=== PATIENT | male | born 1975 | race Caucasian/White ===

== ENCOUNTER 2020-11-06 22:41 | Emergency (ER) | payer OTHER ==
[2020-11-06 22:47] VITALS: BP 127/91; PULSE 91; RESP 18; TEMP 98.1
--- NOTE | 2020-11-06 23:25 | ED ---
Alcohol HPI - General Chief Complaint: Alcohol Stated Complaint: ETOH Time Seen by Provider: 11/06/20 22:43 Source: police, EMS, RN notes reviewed, old records reviewed Mode of arrival: EMS Limitations: no limitations - History of Present Illness Initial Comments: This is a 44-year-old male presenting for severe alcohol intoxication relatively poor story otherwise. At this time patient will be observed for sober, patient was not doing any pain but sleeping outside of a restaurant. She denies complaints she is able to answer questions and he does arouse to verbal communication. Patient denies any complaints MD Complaint: alcohol intoxication Last Drink: just HEAD PUMPER -: minute(s) Previous Visits for Alcohol Intoxication?: No Recent Trauma: Yes Associated Symptoms: denies other symptoms Treatments Prior to Arrival: none Chronic Alcohol Use: Yes - Related Data Home Medications Medication Instructions Recorded Confirmed No Known Home Medications 11/17/13 11/17/13 Allergies Allergy/AdvReac Type Severity Reaction Status Date / Time No Known Allergies Allergy Verified 11/06/20 22:47 Review of Systems ROS Statement: Those systems with pertinent positive or pertinent negative responses have been documented in the HPI. ROS Other: All systems not noted in ROS Statement are negative. Past Medical History Past Medical History: No Reported History History of Any Multi-Drug Resistant Organisms: None Reported Past Surgical History: No Surgical Hx Reported Past Psychological History: No Psychological Hx Reported Past Alcohol Use History: Occasional Past Drug Use History: None Reported General Exam General appearance: alert, in no apparent distress, appears intoxicated Head exam: Present: atraumatic, normocephalic, normal inspection Eye exam: Present: normal appearance, PERRL, EOMI. Absent: scleral icterus, conjunctival injection, periorbital swelling ENT exam: Present: normal exam, mucous membranes moist Neck exam: Present: normal inspection. Absent: tenderness, meningismus, lymphadenopathy Respiratory exam: Present: normal lung sounds bilaterally. Absent: respiratory distress, wheezes, rales, rhonchi, stridor Cardiovascular Exam: Present: regular rate, normal rhythm, normal heart sounds. Absent: systolic murmur, diastolic murmur, rubs, gallop, clicks GI/Abdominal exam: Present: soft, normal bowel sounds. Absent: distended, tenderness, guarding, rebound, rigid Extremities exam: Present: normal inspection, full ROM, normal capillary refill. Absent: tenderness, pedal edema, joint swelling, calf tenderness Back exam: Present: normal inspection Neurological exam: Present: alert, oriented X3, CN II-XII intact Psychiatric exam: Present: normal affect, normal mood Skin exam: Present: warm, dry, intact, normal color. Absent: rash Course Vital Signs 11/06/20 11/06/20 22:42 22:47 Temperature 98.1 F Pulse Rate 91 91 Respiratory 18 18 Rate Blood Pressure 127/91 O2 Sat by Pulse 95 92 L Oximetry - Reevaluation(s) Reevaluation #1: 11/06/20 23:42 Medical record is reviewed Medical Decision Making - Medical Decision Making 44 male who did observe for alcohol intoxication, currently awake alert prefers discharge home able ambulate without difficulty Disposition Clinical Impression: Alcoholic intoxication Disposition: HOME SELF-CARE Condition: Good Instructions (If sedation given, give patient instructions): Alcohol Intoxication (ED) Is patient prescribed a controlled substance at d/c from ED?: No Referrals: None,Stated [Primary Care Provider] - 1-2 days
== END 2020-11-07 03:10 | disposition home or self-care (01) ==
LOC: EC 22:41
DX: F10.929 Alcohol use, unspecified with intoxication, unspecified (principal); Y90.9 Presence of alcohol in blood, level not specified
CPT/HCPCS: 82075; 99284